=== PATIENT | male | born 1990 | race African-American/Black ===

== ENCOUNTER 2018-04-21 13:59 | Emergency (ER) | payer OTHER ==
[2018-04-21] MEDS ORDERED: methylPREDNISolone INJ 125 MG/2 ML VIAL (J2930) IV ONE (14:30)
[2018-04-21 15:41] VITALS: BP 137/78
== END 2018-04-21 15:43 | disposition home or self-care (01) ==
LOC: EDBD 13:59 → M ED 13:59
DX: T78.1XXA Other adverse food reactions, not elsewhere classified, initial encounter (principal); Y92.9 Unspecified place or not applicable; Y93.9 Activity, unspecified; Z79.899 Other long term (current) drug therapy; Z91.018 Allergy to other foods
CPT/HCPCS: 99284; J2930

== ENCOUNTER 2018-04-25 00:15 | Emergency (ER) | payer OTHER ==
[~2018-04-25] VITALS: Ht 190.5 cm; Wt 114.5 kg
[2018-04-25] MEDS ORDERED: diphenhydrAMINE INJ 50MG/ML VIAL (J1200) IV STA (00:46)
[2018-04-25] MEDS ORDERED: dexameTHASONE 20 MG/5 ML VIAL (J1100) IV ONE (01:00)
[2018-04-25] MEDS ORDERED: PRED20TA PO (01:06)
[2018-04-25 01:41] VITALS: BP 139/69
== END 2018-04-25 01:42 | disposition home or self-care (01) ==
LOC: M ED 00:15
DX: R21 Rash and other nonspecific skin eruption (principal); T78.40XA Allergy, unspecified, initial encounter; X58.XXXA Exposure to other specified factors, initial encounter; Y92.89 Other specified places as the place of occurrence of the external cause
CPT/HCPCS: 96374; 96375; 99284; J1100; J1200

== ENCOUNTER 2018-04-28 03:19 | Emergency (ER) | payer OTHER ==
[~2018-04-28] VITALS: Ht 190.5 cm; Wt 114.5 kg
[~2018-04-28 03:19] MED LIST: PRED20TA PO
[2018-04-28 03:26] VITALS: BP 130/72
[2018-04-28] MEDS ORDERED: BENA25TA10 PO (03:34)
[2018-04-28 04:13] LABS: BASO # 0.1 10^3/uL (0.0-0.2); BASO % 0.3 % (0.0-1.0); EOS % 0.2 % (0.0-3.0); HEMOGLOBIN 14.4 g/dl (13.5-17.5); LYMPH # 1.4 10^3/uL (1.5-6.5); LYMPH % 7.5 % (24.0-44.0); MEAN CORPUSCULAR HEMOGLOBIN 32.3 pg (27.0-33.0); MEAN CORPUSCULAR HGB CONC 33.5 g/dl (32.0-36.5); MEAN CORPUSCULAR VOLUME 96.4 fl (80.0-96.0); MONO # 1.5 10^3/uL (0.0-0.8); NEUTROPHILS # 15.6 10^3/uL (1.8-7.7); NEUTROPHILS % 82.1 % (36.0-66.0); PLATELET COUNT, AUTOMATED 378 10^3/uL (150-450); RED BLOOD COUNT 4.46 10^6/uL (4.30-6.10)
[2018-04-28 04:39] LABS: BLOOD UREA NITROGEN 17 MG/DL (7-18); CALCIUM LEVEL 9.1 MG/DL (8.5-10.1); CARBON DIOXIDE LEVEL 24 MEQ/L (21-32); CHLORIDE LEVEL 105 MEQ/L (98-107); CK-MB VALUE MASS < 1.0 NG/ML (<3.6); CPK CREATINE PHOSPHOKINASE 61 U/L (39-308); CREATININE FOR GFR 1.02 MG/DL (0.70-1.30); GLOMERULAR FILTRATION RATE > 60.0 (>60); GLUCOSE, FASTING 106 MG/DL (70-100); MB/CK RELATIVE INDEX 1.64 (< OR =4); POTASSIUM SERUM 4.1 MEQ/L (3.5-5.1); SODIUM LEVEL 140 MEQ/L (136-145); TROPONIN I < 0.02 NG/ML (< 0.10)
[2018-04-28] MEDS ORDERED: IPRATROPIUM 0.5MG/ALBUTEROL 2.5MG INH SOL UD 3ML (DUONEB)(J7620) NEB ONE (06:30)
[2018-04-28] MEDS ORDERED: PROAAER10 INH (07:02)
--- NOTE | 2018-04-28 07:48 | REP ---
PA and lateral chest: There are no comparisons. The lung osuna are clear. The cardiac size is normal. The dominic, mediastinum, and skeletal structures are unremarkable. Impression: Negative PA and lateral chest. There is no free subdiaphragmatic air. Electronically Signed by Christo Sanchez MD 04/28/2018 07:40 A
--- NOTE | 2018-04-29 00:45 | ECGEPIP ---
Stationary ECG Study [facility] - ED Test Date: 2018-04-28 Pat Name: BLAINE FELTON Department: Room: - Gender: M Wash Driller: gt : 1990 Requested By: TYRONE Duran PA-C Order Number: [id number] Reading MD: Dale Sotelo Measurements Intervals [place] Rate: 74 P: 79 LA: 133 QRS: 76 QRSD: 89 T: -1 QT: 346 QTc: 385 Interpretive Statements SINUS RHYTHM ST ELEVATION, PROBABLY EARLY REPOLARIZATION NONSPECIFIC ST & T-WAVE ABNORMALITY NO PRIORS FOR COMPARISON Electronically Signed On 04-29-2018 0:45:15 EST by Dale Sotelo
== END 2018-04-28 07:18 | disposition home or self-care (01) ==
LOC: M ED 03:19
DX: R06.02 Shortness of breath (principal); R06.2 Wheezing; D55.0 Anemia due to glucose-6-phosphate dehydrogenase [G6PD] deficiency; Z79.899 Other long term (current) drug therapy; Z91.018 Allergy to other foods; F17.210 Nicotine dependence, cigarettes, uncomplicated

== ENCOUNTER → 2018-06-29 | Outpatient (CLI) | payer OTHER ==
[~2018-06-29] MED LIST changes: +BENA25TA10 PO; +PROAAER10 INH
== END ==
LOC: M SLEEP 19:50
PROVIDERS: ATTEND Nurse Practitioner Family
DX: R40.0 Somnolence (principal)

== ENCOUNTER → 2018-08-03 | Outpatient (CLI) | payer OTHER ==
--- NOTE | 2018-08-05 10:21 | SLEEPCENT ---
DATE OF PROCEDURE: 08/03/2018 ORDERING PROVIDER: Patti Renae NP Nocturnal polysomnography was performed for the titration of pressure therapy in this patient with obstructive sleep apnea syndrome. Apnea-hypopnea index of 5.1. For testing, a [employer] Lia View full face mask of large size was used, 4 cm of water pressure applied to the circuit, and the lights were extinguished. 8 hours and 29 minutes of data were reviewed. There were 461 minutes of sleep identified. Sleep latency was prolonged at 32 minutes. Rapid eye movement (REM) latency was normal at 68 minutes. Sleep architecture was good with five REM cycles. Overall sleep efficiency 91.4%. Electrocardiogram showed sinus rhythm with an average heart rate of 60 beats per minute. Electroencephalogram (EEG) showed normal waveforms for awake and sleep. Respiratory events were best palliated with C-PAP at a pressure of +10 and remaining measures of sleep physiology were normal. IMPRESSION: Obstructive sleep apnea syndrome (G47.33) RECOMMENDATIONS: Nightly use of pressure therapy 10 cm of water.
== END ==
LOC: M SLEEP 19:57
PROVIDERS: ATTEND Nurse Practitioner Family
DX: G47.33 Obstructive sleep apnea (adult) (pediatric) (principal)